=== PATIENT | female | born 1980 | race Caucasian/White ===

== ENCOUNTER 2016-09-19 10:21 | Emergency (ER) | payer SELFPAY ==
[~2016-09-19] VITALS: Ht 167.6 cm; Wt 71.4 kg
[~2016-09-19 10:21] MED LIST: AMOXICILLIN 50500 MG PO; CEPHALEXIN500 M1 PO; NO HOME MEDICATIONS; NORCO 325 MG-51 TAB PO; PRILOSEC 20MG20 MG PO; ULTRAM 50MG TAB50 MG PO; XANAX 0.5MG0.5 MG PO
[2016-09-19 10:30] VITALS: TEMP 97.7
[2016-09-19 11:39] LABS: BASO # 0.1 (0.0-0.2); BASO % 0.6 % (0.0-2.0); EOS # 0.1 (0.0-0.7); EOS % 1.1 % (0-4.0); GRAN # 6.8 (1.4-6.5); GRAN % 68.7 % (42.2-75.2); LYMPH % 20.2 % (20.0-51.0); MEAN CELL VOLUME 80 fl (80.0-100.0); MEAN CORPUSCULAR HGB CONC 32 g/dl (33.0-37.0); MEAN PLATELET VOLUME 9.1 fl (7.4-10.4); MONO # 0.9 (0.1-0.6); MONO % 9.1 % (1.7-9.3); PLATELET COUNT 363 K/mm3 (130-400); RED BLOOD COUNT 4.15 M/mm3 (4.10-5.30); REDCELL DISTRIBUTION WIDTH-CV 13.7 % (11.5-14.5); WHITE BLOOD COUNT 9.9 K/mm3 (4.8-10.8)
[2016-09-19 11:40] LABS: HEMOGLOBIN 10.5 g/dl (12.5-16.0); MEAN CORPUSCULAR HEMOGLOBIN 25 pg (27.0-31.0)
[2016-09-19 11:55] LABS: ADJUSTED CALCIUM 9.2 mg/dL (8.4-10.2); ALANINE AMINOTRANSFERASE 30 U/L (9-52); ALBUMIN 3.9 gm/dL (3.5-5.0); ALKALINE PHOSPHATASE 81 U/L (50-136); ANION GAP 9 mmol/L (7-16); BILIRUBIN,TOTAL 0.8 mg/dL (0.0-1.0); BLOOD UREA NITROGEN 14 mg/dL (7-17); CALCIUM 9.1 mg/dL (8.4-10.2); CARBON DIOXIDE 24 mmol/L (22-30); CHLORIDE 105 mmol/L (98-107); CREATININE, serum 0.57 mg/dL (0.52-1.25); GLUCOSE 80 mg/dL (74-106); POTASSIUM 3.6 mmol/L (3.4-5.0); SODIUM 138 mmol/L (137-145)
[2016-09-19 11:59] LABS: C-REACTIVE PROTEIN < 0.5 mg/dL (0.0-0.9)
[2016-09-19] MEDS ORDERED: NORCO 325 MG-51 TAB PO (12:18)
[2016-09-19 12:28] VITALS: BP 139/93; PULSE 74
== END 2016-09-19 12:29 | disposition home or self-care (01) ==
LOC: COL.ER 10:21
PROVIDERS: Nurse Practitioner
DX: R10.13 Epigastric pain (principal); Z98.84 Bariatric surgery status; F17.210 Nicotine dependence, cigarettes, uncomplicated; Z87.11 Personal history of peptic ulcer disease

== ENCOUNTER 2016-10-08 09:23 | Emergency (ER) | payer SELFPAY ==
[~2016-10-08] VITALS: Ht 167.6 cm; Wt 71.4 kg
[2016-10-08 09:50] VITALS: TEMP 98
[2016-10-08] MEDS ORDERED: NORCO 325 MG-51 TAB PO (10:39)
[2016-10-08 11:08] VITALS: BP 126/79; PULSE 71
== END 2016-10-08 11:10 | disposition home or self-care (01) ==
LOC: COL.ER 09:23
DX: S93.692A Other sprain of left foot, initial encounter (principal); W19.XXXA Unspecified fall, initial encounter; Y92.009 Unspecified place in unspecified non-institutional (private) residence as the place of occurrence of the external cause

== ENCOUNTER 2022-10-26 10:50 | Outpatient (CLI) | payer MEDICAID ==
[~2022-10-26] VITALS: Ht 167.6 cm; Wt 78.6 kg
[~2022-10-26 10:50] MED LIST changes: +BACTRIM DS 8001 TAB PO
[2022-10-26 11:19] VITALS: BP 111/78; PULSE 73; TEMP 99
[2022-10-26] MEDS ORDERED: CARAFATE 1GM1 G PO (11:57)
[2022-10-26] MEDS ORDERED: PERCOCET 325 MG1 TA2 PO (11:57)
[2022-10-26] MEDS ORDERED: FLEXERIL 1010 MG/TAB PO (11:58)
[2022-10-26] MEDS ORDERED: DOXYCYCLINE 10100 MG PO (11:58)
[2022-10-26] MEDS ORDERED: FERROUSAL325 MG PO (11:58)
[2022-10-26] MEDS ORDERED: VITAMIN D 50,1.25 MG PO (11:59)
[2022-10-26] MEDS ORDERED: SYNTHROID 0.0.025 MG PO (11:59)
== END 2022-10-26 12:40 ==
LOC: EUO 10:50
DX: M46.56 Other infective spondylopathies, lumbar region (principal); D50.9 Iron deficiency anemia, unspecified
CPT/HCPCS: J0875; J1756; J7060

== ENCOUNTER 2022-11-16 11:00 | Outpatient (RCR) | payer MEDICAID ==
[2022-11-02 11:37] VITALS: BP 111/76; PULSE 86; TEMP 98.9
[2022-11-09 11:17] VITALS: BP 140/102; PULSE 72; TEMP 98.4
[~2022-11-16] VITALS: Ht 167.6 cm; Wt 78.1 kg
[~2022-11-16 11:00] MED LIST changes: +CARAFATE 1GM1 G PO; +DOXYCYCLINE 10100 MG PO; +FERROUSAL325 MG PO; +FLEXERIL 1010 MG/TAB PO; +PERCOCET 325 MG1 TA2 PO; +SYNTHROID 0.0.025 MG PO; +VITAMIN D 50,1.25 MG PO; +ZOFRAN ODT4 MG PO
[2022-11-16 11:29] VITALS: BP 135/79; PULSE 67; TEMP 98.3
== END 2022-11-25 09:24 | disposition home or self-care (01) ==
LOC: EUO 11:00
DX: M47.896 Other spondylosis, lumbar region (principal)
CPT/HCPCS: J0875; J1756; J7060

== ENCOUNTER 2022-11-28 15:31 | Outpatient (RCR) | payer MEDICAID ==
[~2022-11-28] VITALS: Ht 167.6 cm; Wt 78.1 kg
[2022-11-28 10:52] VITALS: BP 122/81; PULSE 60; TEMP 98.2
== END 2022-11-29 10:45 ==
LOC: EUO 15:31
DX: D50.9 Iron deficiency anemia, unspecified (principal); M47.817 Spondylosis without myelopathy or radiculopathy, lumbosacral region
CPT/HCPCS: J0875; J7060